=== PATIENT | female | born 1995 | race Caucasian/White ===

== ENCOUNTER 2017-06-20 09:51 | Inpatient (IN) | payer OTHER ==
[~2017-06-20] VITALS: Ht 157.5 cm; Wt 66.0 kg
[2017-06-20] MEDS ORDERED: PANTOprazole SOD 40 MG TAB PO STA (10:04)
[2017-06-20] MEDS ORDERED: ALUMINUM/MAGNESIUM SUSP 30 ML UDC PO STA (10:04)
[2017-06-20] MEDS ORDERED: ONDANSETRON INJ 2 MG/ML 2 ML VIAL IV STA (10:04)
[2017-06-20] MEDS ORDERED: ACETAMINOPHEN 500 MG TAB PO STA (10:04)
[2017-06-20 10:26] LABS: BASO % 0.1 %; BASO ABS # 0.01 K/uL (0-0.2); EOS % 1.1 %; EOS ABS # 0.12 K/uL (0-0.5); HEMATOCRIT 41.5 % (37-47); HEMOGLOBIN 14.2 g/dL (12.0-16.0); IG# 0.02 K/uL (0.00-0.02); LYMPH ABS # 2.16 K/uL (1.2-3.4); MEAN CORPUSCULAR HEMOGLOBIN 28.1 pg (25-34); MEAN CORPUSCULAR HGB CONC 34.2 g/dl (32-36); MEAN PLATELET VOLUME 9.6 fL (7.4-10.4); MONO % 7.8 %; MONO ABS # 0.84 K/uL (0.11-0.59); NEUT % 70.8 %; NEUT ABS # 7.63 K/uL (1.4-6.5); PLATELET COUNT 183 K/uL (130-400); RED CELL DISTRIBUTION WIDTH CV 14.4 % (11.5-14.5); RED CELL DISTRIBUTION WIDTH SD 42.8 fL (36.4-46.3); WHITE BLOOD COUNT 10.78 K/uL (4.8-10.8)
[2017-06-20 10:35] LABS: PTT PATIENT 28.2 SECONDS (21.0-31.0)
--- NOTE | 2017-06-20 10:40 | EMERGENCY ROOM VISIT NOTE ---
History Report prepared by Hema: Brandie Sharma Under the Supervision of: Dr. Jd Sandra D.O. First contact with patient: 09:58 Chief Complaint: SHORTNESS OF BREATH Stated Complaint: PRESSURE ON THROAT/CHEST, TROUBLE BREATHING History of Present Illness The patient is a 22 year old female who presents to the Emergency Room with complaints of constant shortness of breath beginning yesterday morning. She states that she woke up feeling short of breath. She reports a feeling of tightness in her chest and chest pain that occurs with breathing. The patient also notes some nausea and upper abdominal discomfort. She has never experienced symptoms like this before. She did not take any medications for her symptoms. The patient denies vomiting and pain or swelling in her legs. She takes an OCP. Source of History: patient Onset: yesterday morning Position: chest Quality: other (shortness of breath) Timing: constant Modifying Factors (Worsening): breathing Associated Symptoms: + chest pain, + nausea, + abdominal pain, No vomiting Review of Systems See HPI for pertinent positives & negatives. A total of 10 systems reviewed and were otherwise negative. Past Medical & Surgical Medical Problems: (1) Pulmonary embolism Surgical Problems: (1) History of wisdom tooth extraction Family History Cancer Diabetes mellitus Gallbladder disease Heart disease Hypertension Kidney disease Kidney stones Lung disease Seizures Social History Smoking Status: Never Smoker Smokeless Tobacco Use: No Alcohol Use: none Drug Use: none Marital Status: single Occupation Status: student Current/Historical Medications Scheduled Ethinyl Estradiol/Norethindr (), 1 TAB PO DAILY Allergies Coded Allergies: No Known Allergies (Unverified , 06/20/17) Physical Exam Vital Signs Date Time Temp Pulse Resp B/P (MAP) Pulse Ox O2 Delivery O2 Flow Rate FiO2 06/20/17 12:19 100 Room Air 06/20/17 11:37 100 Room Air 06/20/17 11:19 95 18 117/81 100 Room Air 06/20/17 10:20 88 06/20/17 10:13 137/90 06/20/17 10:00 Room Air 06/20/17 09:53 37.1 98 20 120/84 100 Room Air Physical Exam GENERAL: Patient is awake, alert, and in no acute distress. Patient is resting comfortably and showing no signs of anxiety EYES: The conjunctivae are clear. The pupils are round and reactive. EARS, NOSE, MOUTH AND THROAT: The nose is without any evidence of any deformity. Mucous membranes are moist tongue is midline NECK: The neck is nontender and supple. RESPIRATORY: Normal respiratory effort is noted there is no evidence of wheezing rhonchi or rales CARDIOVASCULAR: Regular rate and rhythm noted there no murmurs rubs or gallops normal S1 normal S2 GASTROINTESTINAL: The abdomen is soft. Bowel sounds are present in all quadrants. There was epigastric tenderness to palpation which was mild, no guarding or rigidity. MUSCULOSKELETAL/EXTREMITIES: There is no evidence of gross deformity full range of motion is noted in the hips and shoulders SKIN: There is no obvious evidence of any rash. There are no petechiae, pallor or cyanosis noted. NEUROLOGIC: Patient is awake alert and oriented x3 strength is symmetric patellar reflexes are 2+ bilaterally Medical Decision & Procedures ER Provider Diagnostic Interpretation: Radiology results as stated below per my review and radiologist interpretation: ABDOMEN 2VIEW W/PA CHEST RTN CLINICAL HISTORY: Abdominal pain DIFFICULTY BREATHING COMPARISON STUDY: No previous studies for comparison. FINDINGS: The erect chest reveals no evidence of free air. There is no evidence of focal pulmonary consolidation.] Erect and supine views of the abdomen reveal no abnormally dilated loops of large or small bowel. There are no transition zone to indicate bowel obstruction. There are few scattered nonspecific air-fluid levels. IMPRESSION: No evidence of bowel obstruction. No evidence of free air. Electronically signed by: Steve Osman M.D. 06/20/2017 10:52 AM Dictated Date/Time: 06/20/2017 10:[address] ANGIOGRAM OF THE CHEST CLINICAL HISTORY: Atypical chest pain and difficulty breathing COMPARISON STUDY: Chest x-ray dated 06/20/2017 TECHNIQUE: Following the IV administration of 79 mL of Optiray-320, CT angiogram of the thorax was performed from the thoracic inlet to the lung bases utilizing the pulmonary embolus protocol. Images are reviewed in the axial, sagittal, and coronal planes. IV contrast was administered without complication. MIP imaging was performed. A dose lowering technique was utilized adhering to the principles of ALARA. CT DOSE: 219.96 mGy.cm FINDINGS: No pathologically enlarged axillary mediastinal or hilar lymph nodes were visualized. There was no evidence of thoracic aortic dilatation. There are extensive left lower lobe pulmonary artery filling defects, indicative of acute pulmonary embolism. There is also a filling defect at the origin of the left upper lobe pulmonary artery No pleural effusions are visualized. There was no evidence of focal pulmonary consolidation. IMPRESSION: Acute pulmonary embolism. Electronically signed by: Steve Osman M.D. 06/20/2017 11:20 AM Dictated Date/Time: 06/20/2017 11:16 AM Laboratory Results 06/20/17 10:00 Red Blood Count 5.06, Mean Corpuscular Volume 82.0, Mean Corpuscular Hemoglobin 28.1, Mean Corpuscular Hemoglobin Concent 34.2, Mean Platelet Volume 9.6, Neutrophils (%) (Auto) 70.8, Lymphocytes (%) (Auto) 20.0, Monocytes (%) (Auto) 7.8, Eosinophils (%) (Auto) 1.1, Basophils (%) (Auto) 0.1, Neutrophils # (Auto) 7.63, Lymphocytes # (Auto) 2.16, Monocytes # (Auto) 0.84, Eosinophils # (Auto) 0.12, Basophils # (Auto) 0.01 06/20/17 10:00 Test 06/20/17 10:00 06/20/17 12:17 White Blood Count 10.78 K/uL (4.8-10.8) Red Blood Count 5.06 M/uL (4.2-5.4) Hemoglobin 14.2 g/dL (12.0-16.0) Hematocrit 41.5 % (37-47) Mean Corpuscular Volume 82.0 fL (80-100) Mean Corpuscular Hemoglobin 28.1 pg (25-34) Mean Corpuscular Hemoglobin Concent 34.2 g/dl (32-36) Platelet Count 183 K/uL (130-400) Mean Platelet Volume 9.6 fL (7.4-10.4) Neutrophils (%) (Auto) 70.8 % Lymphocytes (%) (Auto) 20.0 % Monocytes (%) (Auto) 7.8 % Eosinophils (%) (Auto) 1.1 % Basophils (%) (Auto) 0.1 % Neutrophils # (Auto) 7.63 K/uL (1.4-6.5) Lymphocytes # (Auto) 2.16 K/uL (1.2-3.4) Monocytes # (Auto) 0.84 K/uL (0.11-0.59) Eosinophils # (Auto) 0.12 K/uL (0-0.5) Basophils # (Auto) 0.01 K/uL (0-0.2) RDW Standard Deviation 42.8 fL (36.4-46.3) RDW Coefficient of Variation 14.4 % (11.5-14.5) Immature Granulocyte % (Auto) 0.2 % Immature Granulocyte # (Auto) 0.02 K/uL (0.00-0.02) Prothrombin Time 10.7 SECONDS (9.0-12.0) Prothromb Time International Ratio 1.0 (0.9-1.1) Activated Partial Thromboplast Time 28.2 SECONDS (21.0-31.0) Partial Thromboplastin Ratio 1.1 Urine Color DK YELLOW Urine Appearance CLEAR (CLEAR) Urine pH 5.5 (4.5-7.5) Urine Specific [place] 1.023 (1.000-1.030) Urine Protein NEG (NEG) Urine Glucose (UA) NEG (NEG) Urine Ketones NEG (NEG) Urine Occult Blood NEG (NEG) Urine Nitrite NEG (NEG) Urine Bilirubin NEG (NEG) Urine Urobilinogen NEG (NEG) Urine Leukocyte Esterase NEG (NEG) Anion Gap 9.0 mmol/L (3-11) Est Creatinine Clear Calc Drug Dose 95.3 ml/min Estimated GFR () 110.4 Estimated GFR (Non- 95.2 BUN/Creatinine Ratio 7.6 (10-20) Calcium Level 9.1 mg/dl (8.5-10.1) Total Bilirubin 0.6 mg/dl (0.2-1) Direct Bilirubin 0.1 mg/dl (0-0.2) Aspartate Amino Transf (AST/SGOT) 14 U/L (15-37) Alanine Aminotransferase (ALT/SGPT) 17 U/L (12-78) Alkaline Phosphatase 57 U/L (45-117) Troponin I < 0.015 ng/ml (0-0.045) Total Protein 8.5 gm/dl (6.4-8.2) Albumin 3.8 gm/dl (3.4-5.0) Lipase 188 U/L (73-393) Human Chorionic Gonadotropin, Qual NEG (NEG) Laboratory results per my review. Medications Administered Medications (Trade) Dose Ordered Sig/Rubia Route Start Time Stop Time Status Last Admin Dose Admin Acetaminophen (Tylenol Tab) 1,000 mg NOW STAT PO 06/20/17 10:04 06/20/17 10:06 DC 06/20/17 10:30 1,000 MG Al Hydroxide/Mg Hydroxide (Maalox Susp) 30 ml NOW STAT PO 06/20/17 10:04 06/20/17 10:06 DC 06/20/17 10:30 30 ML Ondansetron HCl (Zofran Inj) 4 mg NOW STAT IV 06/20/17 10:04 06/20/17 10:06 DC 06/20/17 10:30 4 MG Pantoprazole Sodium (Protonix Tab) 40 mg NOW STAT PO 06/20/17 10:04 06/20/17 10:06 DC 06/20/17 10:29 40 MG Enoxaparin Sodium (Lovenox Inj) 75 mg NOW ONCE SQ 06/20/17 11:45 06/20/17 11:46 DC 06/20/17 12:09 75 MG ECG Per My Interpretation Indication: SOB/dyspnea Rate (beats per minute): 79 Rhythm: normal sinus Findings: T-wave inversion (Inferior), no ectopy Comparison ECG Date: no prior available ED Course 0958: The patient was evaluated in room A12B. A complete history and physical examination were performed. 1004: Protonix tab 40 mg PO, Zofran 4 mg IV, Maalox Susp 30 ml PO, Tylenol tab 1000 mg PO 1129: I reassessed the patient at this time. She is feeling better and resting comfortably. I discussed the results and treatment plan with the patient. I answered all pertaining questions that she had. She expressed understanding and verbalized agreement. 1141: I spoke with Dr. Box. We discussed the patient's case. [facility] 1145: Lovenox 75 mg SQ Medical Decision Differential diagnosis: Etiologies such as infections, reactive airway disease, pneumonia, pneumothorax , COPD, CHF, cardiac ischemia, pulmonary embolism, musculoskeletal, gastrointestinal, as well as others were entertained. Nursing notes reviewed. Additional history is obtained from the patient's family. The patient is a 22-year-old female who presented to the emergency department with pleuritic chest pain. The patient does have a history of taking oral control pills. She was not tachycardic initially. She does have a family history of factor V Leiden although she herself states that she was tested negative for this disease process. The patient was treated with Tylenol and medications for suspected GI cause of her symptoms but she had a d-dimer which was elevated. This led to a CT the chest which was positive for left- sided pulmonary embolism. The patient was started on Lovenox. I discussed the patient's laboratory and radiographic studies with her. I discussed her case with the on-call [facility] hospitalist group. They have agreed to evaluate the patient in the emergency department for further management and disposition. Medication Reconcilliation Current Medication List: was personally reviewed by me Blood Pressure Screening Patient's blood pressure: Normal blood pressure Consults Time Called: 1130 Consulting Physician: Dr. Box Returned Call: [address] Box. We discussed the patient's case. [facility]. Impression Primary Impression: Pulmonary embolism Scribe Attestation The scribe's documentation has been prepared under my direction and personally reviewed by me in its entirety. I confirm that the note above accurately reflects all work, treatment, procedures, and medical decision making performed by me. Departure Information Dispostion Being Evaluated By Hospitalist Referrals Katherin Pennington M.D. (MEDICAL) (PCP) Patient Instructions My [facility]
[2017-06-20 10:47] LABS: ALBUMIN 3.8 gm/dl (3.4-5.0); ALT/SGPT 17 U/L (12-78); AST/SGOT 14 U/L (15-37); BLOOD UREA NITROGEN 7 mg/dl (7-18); CALCIUM 9.1 mg/dl (8.5-10.1); CARBON DIOXIDE 23 mmol/L (21-32); CREATININE 0.87 mg/dl (0.60-1.20); GLUCOSE 81 mg/dl (70-99); LIPASE 188 U/L (73-393); POTASSIUM 3.7 mmol/L (3.5-5.1); SODIUM 137 mmol/L (136-145)
[2017-06-20 10:53] LABS: ALKALINE PHOSPHATASE 57 U/L (45-117); TOTAL PROTEIN 8.5 gm/dl (6.4-8.2)
--- NOTE | 2017-06-20 10:53 | DIAGNOSTIC IMAGING REPORT ---
ABDOMEN 2VIEW W/PA CHEST RTN CLINICAL HISTORY: Abdominal pain DIFFICULTY BREATHING COMPARISON STUDY: No previous studies for comparison. FINDINGS: The erect chest reveals no evidence of free air. There is no evidence of focal pulmonary consolidation.] Erect and supine views of the abdomen reveal no abnormally dilated loops of large or small bowel. There are no transition zone to indicate bowel obstruction. There are few scattered nonspecific air-fluid levels. IMPRESSION: No evidence of bowel obstruction. No evidence of free air. Electronically signed by: Steve Osman M.D. 06/20/2017 10:52 AM Dictated Date/Time: 06/20/2017 10:51 AM
[2017-06-20] MEDS ORDERED: JNL12021 PO (10:58)
[2017-06-20] MEDS ORDERED: JNLF153028 PO (11:00)
[2017-06-20] MEDS ORDERED: OPTIRAY 320 IV PRN (11:15)
--- NOTE | 2017-06-20 11:21 | DIAGNOSTIC IMAGING REPORT ---
CT ANGIOGRAM OF THE CHEST CLINICAL HISTORY: Atypical chest pain and difficulty breathing COMPARISON STUDY: Chest x-ray dated 06/20/2017 TECHNIQUE: Following the IV administration of 79 mL of Optiray-320, CT angiogram of the thorax was performed from the thoracic inlet to the lung bases utilizing the pulmonary embolus protocol. Images are reviewed in the axial, sagittal, and coronal planes. IV contrast was administered without complication. MIP imaging was performed. A dose lowering technique was utilized adhering to the principles of ALARA. CT DOSE: 219.96 mGy.cm FINDINGS: No pathologically enlarged axillary mediastinal or hilar lymph nodes were visualized. There was no evidence of thoracic aortic dilatation. There are extensive left lower lobe pulmonary artery filling defects, indicative of acute pulmonary embolism. There is also a filling defect at the origin of the left upper lobe pulmonary artery No pleural effusions are visualized. There was no evidence of focal pulmonary consolidation. IMPRESSION: Acute pulmonary embolism. Electronically signed by: Steve Osman M.D. 06/20/2017 11:20 AM Dictated Date/Time: 06/20/2017 11:16 AM
[2017-06-20] MEDS ORDERED: ENOXAPARIN 80 MG/0.8 ML SYR SQ ONE (11:45)
[2017-06-20] MEDS ORDERED: ONDANSETRON INJ 2 MG/ML 2 ML VIAL IV PRN (12:15)
[2017-06-20] MEDS ORDERED: ACETAMINOPHEN 325 MG TAB PO PRN (12:15)
--- NOTE | 2017-06-20 12:17 | History and Physical ---
History & Physical Date & Time of Service: Jun 20, 2017 at 12:16 Chief Complaint: Pressure On Throat/Chest, Trouble Breathing Primary Care Physician: Katherin Pennington M.D. (MEDICAL) History of Present Illness Source: patient, family Patient is a 22 yr female with no significant PMH presents with history of chest tightness and throat pain which patient noticed after waking up from sleep yesterday. She grades the pain to be epigastric in location, dull pain, 2/ 10 intensity, non radiating, no aggravating/relieving factors. Reports associated dyspnea on exertion but denies any shortness of breath at rest. Patient is on OCPs for contraception and family history of Factor V Leiden mutation. Denies any history of palpitations, orthopnea, PND, dizziness, pedal edema, diaphoresis, calf pain, cough, hemoptysis, fever, chills, headache, weakness, nausea, vomiting, diarrhea, dysuria. CT scan showed findings suggestive of acute Pulmonary Embolism. Past Medical/Surgical History Medical Problems: (1) Pulmonary embolism Surgical Problems: (1) History of wisdom tooth extraction Family History Cancer Diabetes mellitus Gallbladder disease Heart disease Hypertension Kidney disease Kidney stones Lung disease Seizures Mother: Factor V mutation, Bladder cancer Social History Smoking Status: Never Smoker Smokeless Tobacco Use: No Alcohol Use: none Drug Use: none Marital Status: single Housing status: lives with family Occupational Status: student Allergies Coded Allergies: No Known Allergies (Unverified , 06/20/17) Home Medications Scheduled Ethinyl Estradiol/Norethindr (), 1 TAB PO DAILY Review of Systems See HPI for pertinent positives & negatives. A total of 10 systems reviewed and were otherwise negative. Physical Exam Vital Signs Date Time Temp Pulse Resp B/P (MAP) Pulse Ox O2 Delivery O2 Flow Rate FiO2 06/20/17 11:37 100 Room Air 06/20/17 11:19 95 18 117/81 100 Room Air 06/20/17 10:20 88 06/20/17 10:13 137/90 06/20/17 10:00 Room Air 06/20/17 09:53 37.1 98 20 120/84 100 Room Air General Appearance: WD/WN, no apparent distress Head: normocephalic, atraumatic Eyes: normal inspection, PERRL, EOMI, sclerae normal ENT: normal ENT inspection, hearing grossly normal Neck: supple, trachea midline Respiratory/Chest: chest non-tender, lungs clear, normal breath sounds, no respiratory distress, no accessory muscle use Cardiovascular: regular rate, rhythm, no edema, no murmur, + tachycardia Abdomen/GI: normal bowel sounds, non tender, soft Back: normal inspection Extremities/Musculoskelatal: normal inspection, no pedal edema Neurologic/Psych: production control clerk II-XII nml as tested, no motor/sensory deficits, alert, normal mood/affect, oriented x 3 Skin: normal color, warm/dry Diagnostics Laboratory Results Results Past 24 Hours Test 06/20/17 10:00 Range/Units White Blood Count 10.78 4.8-10.8 K/uL Red Blood Count 5.06 4.2-5.4 M/uL Hemoglobin 14.2 12.0-16.0 g/dL Hematocrit 41.5 37-47 % Mean Corpuscular Volume 82.0 80-100 fL Mean Corpuscular Hemoglobin 28.1 25-34 pg Mean Corpuscular Hemoglobin Concent 34.2 32-36 g/dl Platelet Count 183 130-400 K/uL Mean Platelet Volume 9.6 7.4-10.4 fL Neutrophils (%) (Auto) 70.8 % Lymphocytes (%) (Auto) 20.0 % Monocytes (%) (Auto) 7.8 % Eosinophils (%) (Auto) 1.1 % Basophils (%) (Auto) 0.1 % Neutrophils # (Auto) 7.63 1.4-6.5 K/uL Lymphocytes # (Auto) 2.16 1.2-3.4 K/uL Monocytes # (Auto) 0.84 0.11-0.59 K/uL Eosinophils # (Auto) 0.12 0-0.5 K/uL Basophils # (Auto) 0.01 0-0.2 K/uL RDW Standard Deviation 42.8 36.4-46.3 fL RDW Coefficient of Variation 14.4 11.5-14.5 % Immature Granulocyte % (Auto) 0.2 % Immature Granulocyte # (Auto) 0.02 0.00-0.02 K/uL Prothrombin Time 10.7 9.0-12.0 SECONDS Prothromb Time International Ratio 1.0 0.9-1.1 Activated Partial Thromboplast Time 28.2 21.0-31.0 SECONDS Partial Thromboplastin Ratio 1.1 Urine Color DK YELLOW Urine Appearance CLEAR CLEAR Urine pH 5.5 4.5-7.5 Urine Specific [place] 1.023 1.000-1.030 Urine Protein NEG NEG Urine Glucose (UA) NEG NEG Urine Ketones NEG NEG Urine Occult Blood NEG NEG Urine Nitrite NEG NEG Urine Bilirubin NEG NEG Urine Urobilinogen NEG NEG Urine Leukocyte Esterase NEG NEG Sodium Level 137 136-145 mmol/L Potassium Level 3.7 3.5-5.1 mmol/L Chloride Level 105 98-107 mmol/L Carbon Dioxide Level 23 21-32 mmol/L Anion Gap 9.0 3-11 mmol/L Blood Urea Nitrogen 7 7-18 mg/dl Creatinine 0.87 0.60-1.20 mg/dl Est Creatinine Clear Calc Drug Dose 95.3 ml/min Estimated GFR () 110.4 Estimated GFR (Non- 95.2 BUN/Creatinine Ratio 7.6 10-20 Random Glucose 81 70-99 mg/dl Calcium Level 9.1 8.5-10.1 mg/dl Total Bilirubin 0.6 0.2-1 mg/dl Direct Bilirubin 0.1 0-0.2 mg/dl Aspartate Amino Transf (AST/SGOT) 14 15-37 U/L Alanine Aminotransferase (ALT/SGPT) 17 12-78 U/L Alkaline Phosphatase 57 45-117 U/L Troponin I < 0.015 0-0.045 ng/ml Total Protein 8.5 6.4-8.2 gm/dl Albumin 3.8 3.4-5.0 gm/dl Lipase 188 73-393 U/L Human Chorionic Gonadotropin, Qual NEG NEG Diagnostic Radiology CTA: : Acute pulmonary embolism. EKG EKG: NSR, sinus arrhythmia Impression Assessment and Plan Acute Pulmonary Embolism Likely secondary to OCPs Denies recent long Travel, prolonged Hospitalization Family H/O Factor V, Cancer CTA showed:Acute Pulmonary Embolism Saturating well on Room air Start on IV Lovenox, coumadin monitor INR Monitor in Tele for hemodynamic changes Oxygen PRN hypercoagulable work up Consider starting on newer anticoagulants as per Patient's preference Check ECHO Trend cardiac enzymes EKG: No signs of acute Ischemia DVT Px: On Lovenox, Coumadin Disposition; Expect to discharge home when stable Resuscitation Status VTE Prophylaxis Will order VTE Prophylaxis: Yes
[2017-06-20 12:19] VITALS: O2SAT 100; Ht 157.5 cm; Wt 66.0 kg
[2017-06-20 13:29] VITALS: BP 121/79; PULSE 107; TEMP 37.3; O2SAT 99
[2017-06-20] MEDS ORDERED: SODIUM CHLORIDE 0.9% 500ML 500 ML IV SCH (14:30)
[2017-06-20] MEDS ORDERED: WARFARIN SOD 5 MG TAB PO SCH (16:00)
[2017-06-20 16:12] VITALS: BP 120/78; PULSE 66; TEMP 36.8; O2SAT 100
--- NOTE | 2017-06-20 16:31 | ECHOCARDIOGRAM REPORT ---
*NOTICE TO RECEIVING CONSTITUTION PARTY AGENCY This information is strictly Confidential and protected under [place] law. [place] law prohibits you from making any further disclosure of this information unless further disclosure is expressly permitted by the written consent of the person to whom it pertains or is authorized by law. A general authorization for the release of medical or other information is not sufficient for this purpose. Hospital accepts no responsibility if the information is made available to any other person, INCLUDING THE PATIENT. Interpretation Summary * Name: JOSE MARIE Study Date: 06/20/2017 12:46 PM BP: 117/81 mmHg * Patient Location: [facility] HR: 95 * : 1995 (M/d/yyyy) Gender: Female Height: 62 in * Age: 22 yrs Ethnicity: CA Weight: 159 lb * Ordering Physician: Vernon Box * Performed By: Zenia Serrano RDCS * * Reason For Study: CHEST PAIN * BSA: 1.7 m2 * -- Conclusions -- * Normal LV chamber size and wall thickness. * Normal LV systolic function, EF 60-65%. * No segmental left ventricular wall motion abnormalities are noted. * Normal diastolic function. * No significant valvular pathology. Procedure Details * A complete two-dimensional transthoracic echocardiogram was performed (2D, M-mode, Doppler and color flow Doppler). Left Ventricle * The left ventricle is normal in size. * There is normal left ventricular wall thickness. * Ejection Fraction = 60-65%. * Left ventricular systolic function is normal. * No segmental left ventricular wall motion abnormalities are noted. * The left ventricular wall motion is normal. Right Ventricle * The right ventricular cavity size is normal (basal dimension <4.2 cm in right ventricular apical 4-chamber view). * The right ventricular systolic function is normal as assessed by tricuspid annular plane systolic excursion (TAPSE) (normal >1.5 cm). Atria * The left atrial size is normal. * Right atrial size is normal. * No ASD detected; PFO is not assessed. Mitral Valve * The mitral valve is normal in structure and function. Tricuspid Valve * The tricuspid valve is normal in structure and function. Aortic Valve * The aortic valve is not well visualized. * No hemodynamically significant valvular aortic stenosis. * There is no significant aortic regurgitation. Pulmonic Valve * The pulmonary valve is not well seen, but the Doppler examination is normal without significant regurgitation or stenosis. Great Vessels * The aortic root is normal size. Pericardium/Pleural * There is no pericardial effusion. Left Ventricular Diastolic Function * Pulse wave TDI of the anterior and posterior mitral annulas demonstrates normal LV relaxation MMode 2D Measurements and Calculations IVSd 0.97 cm IVSs 1.2 cm LVIDd 4.2 cm LVIDs 2.7 cm LVPWd 0.79 cm LVPWs 1.4 cm IVS/LVPW 1.2 FS 34.4 % EDV(Teich) 77.4 ml ESV(Teich) 27.9 ml EF(Teich) 63.9 % EDV(cubed) 72.7 ml ESV(cubed) 20.5 ml EF(cubed) 71.8 % % IVS thick 18.3 % % LVPW thick 74.2 % LV mass(C)d 114.2 grams LV mass(C)dI 65.8 grams/m\S\2 LV mass(C)s 104.9 grams LV mass(C)sI 60.5 grams/m\S\2 SV(Teich) 49.4 ml SI(Teich) 28.5 ml/m\S\2 SV(cubed) 52.2 ml SI(cubed) 30.1 ml/m\S\2 ACS 1.2 cm LA dimension 3.2 cm asc Aorta Diam 2.7 cm LVOT diam 1.9 cm LVOT area 2.8 cm\S\2 LVAd ap4 21.6 cm\S\2 LVLd ap4 8.2 cm EDV(MOD-sp4) 47.6 ml EDV(sp4-el) 48.6 ml LVAs ap4 11.6 cm\S\2 LVLs ap4 6.5 cm ESV(MOD-sp4) 17.0 ml ESV(sp4-el) 17.5 ml EF(MOD-sp4) 64.2 % EF(sp4-el) 64.0 % LVAd ap2 25.5 cm\S\2 LVLd ap2 8.7 cm EDV(MOD-sp2) 61.4 ml EDV(sp2-el) 63.2 ml LVAs ap2 13.6 cm\S\2 LVLs ap2 7.2 cm ESV(MOD-sp2) 22.6 ml ESV(sp2-el) 21.8 ml EF(MOD-sp2) 63.1 % EF(sp2-el) 65.5 % LVLd %diff 6.1 % EDV(MOD-bp) 55.7 ml LVLs %diff 9.9 % ESV(MOD-bp) 20.5 ml EF(MOD-bp) 63.2 % SV(MOD-sp4) 30.6 ml SI(MOD-sp4) 17.6 ml/m\S\2 SV(MOD-sp2) 38.8 ml SI(MOD-sp2) 22.4 ml/m\S\2 SV(MOD-bp) 35.2 ml SI(MOD-bp) 20.3 ml/m\S\2 SV(sp4-el) 31.1 ml SI(sp4-el) 17.9 ml/m\S\2 SV(sp2-el) 41.4 ml SI(sp2-el) 23.9 ml/m\S\2 Doppler Measurements and Calculations MV E max milena 68.5 cm/sec MV A max milena 52.4 cm/sec MV E/A 1.3 MV dec time 0.20 sec Ao V2 max 113.9 cm/sec Ao max PG 5.2 mmHg Ao max PG (full) 1.9 mmHg BENOIT(V,A) 2.2 cm\S\2 BENOIT(V,D) 2.2 cm\S\2 LV V1 max PG 3.3 mmHg LV V1 max 90.3 cm/sec PA V2 max 71.2 cm/sec PA max PG 2.0 mmHg
--- NOTE | 2017-06-20 18:58 | Pulmonary Consultation ---
History General Date of Service: Jun 20, 2017. Stated Complaint: Pulmonary Embolism HPI Dear Dr. Box: Thank you for your kind referral of Ms. Diamond to pulmonary service. This is 22 -year-old female without past medical history presented to the hospital with sudden onset of shortness of breath accompanied with chest pain mainly in the upper mediastinal area. The patient has been having the symptoms only for 24 hours. She denies any pain in her legs, denies any pain in her back either. No recent history of UTI. Apparently, the patient has been changed her control pills to a newer one (Junel) which is Estradiol based medication. The patient has been taking it for the past month only. Her mother also had a history of factor V Leiden deficiency and she has been maintained on Coumadin for life. The patient denies any recent sedentary life, she works in an office- based, and she is a student. She denies any recent travel, no recent injury or surgery. Currently the patient is asymptomatic, she was presented to the hospital underwent CT angiogram of the chest which showed inferior branch of the pulmonary artery on the left with thrombosis. Filling defect was noted no evidence of pleural effusion or pulmonary infarct. The patient underwent echocardiogram and showed TAPSE greater than 1.5. Troponin was negative and d- dimer was more than 450. The patient was started empirically on heparin drip and admitted to the hospital so we were asked to evaluate her clinically. The patient does not have any history of thromboembolic event in the past. No history of recent . Historian: patient, family, other (Medical records) Onset: just prior to arrival Complaint Status: persistent Review of Systems Constitutional: denies: no symptoms, as stated in HPI, chills, diaphoresis, fever, malaise, weakness, weight gain, weight loss, other Eyes: denies: no symptoms, as stated in HPI, eye pain, tearing, itching, redness, discharge, double vision, visual changes, blurred vision, photophobia, other ENT: denies: no symptoms, as stated in HPI, ear pain, ear discharge, loss of hearing, tinnitus, nasal pain, nasal congestion, rhinorrhea, epistaxis, sore throat, stridor, throat swelling, mouth pain, mouth swelling, dental pain, gum swelling, other Cardiovascular: reports: chest tightness Respiratory: reports: shortness of breath Gastrointestinal: reports: no symptoms Musculoskeletal: reports: no symptoms Integumentary: reports: no symptoms Neurologic: reports: no symptoms Psychiatric: reports: no symptoms Endocrine: no symptoms Allergic / Immunologic: no symptoms Past Medical History Past Medical History: Not significant Family History Cancer Diabetes mellitus Gallbladder disease Heart disease Hypertension Kidney disease Kidney stones Lung disease Seizures Social History Hx Tobacco Use In Past Year?: No Smoking Status: Never Smoker Marital status: single Housing status: lives with family Occupational Status: student History of MDRO History of MDRO: No Allergies Coded Allergies: No Known Allergies (Unverified , 06/20/17) Current Medications Reported Home Medications Medications Dose Route/Sig Max Daily Dose Days Date Category (Ethinyl Estradiol/Norethindrone) 1 Tab Tab 1 Tab PO DAILY 28 06/20/17 Reported Physical Physical Exam Vital Signs: Date Time Temp Pulse Resp B/P (MAP) Pulse Ox O2 Delivery O2 Flow Rate FiO2 06/20/17 16:12 36.8 66 18 120/78 (92) 100 Room Air 06/20/17 16:00 Room Air 06/20/17 13:29 37.3 107 18 121/79 (93) 99 Room Air 06/20/17 12:52 97 18 119/78 98 Room Air 06/20/17 12:19 100 Room Air 06/20/17 11:37 100 Room Air 06/20/17 11:19 95 18 117/81 100 Room Air 06/20/17 10:20 88 06/20/17 10:13 137/90 06/20/17 10:00 Room Air 06/20/17 09:53 37.1 98 20 120/84 100 Room Air General Appearance: WELL-APPEARING, NO APPARENT DISTRESS Eyes: PERRLA, EOMI ENT: NORMAL EAR EXAM, NORMAL MOUTH EXAM Neck: NO TENDERNESS Respiratory: BREATH SOUNDS NORMAL Cardiovasular: REGULAR RATE/RHYTHM, NORMAL S1S2, NO M/G/R, NO MURMUR Abdomen: NON TENDER, NO MASSES, NO GUARDING Lower Extremities: NO EDEMA, NO DEFORMITY Neuro: ALERT, ORIENTED x 3, NORMAL MOTOR EXAM Psychiatric: NORMAL AFFECT Diagnostics Labs Results Past 24 Hours Test 06/20/17 10:00 06/20/17 10:19 06/20/17 15:52 Range/Units White Blood Count 10.78 4.8-10.8 K/uL Red Blood Count 5.06 4.2-5.4 M/uL Hemoglobin 14.2 12.0-16.0 g/dL Hematocrit 41.5 37-47 % Mean Corpuscular Volume 82.0 80-100 fL Mean Corpuscular Hemoglobin 28.1 25-34 pg Mean Corpuscular Hemoglobin Concent 34.2 32-36 g/dl Platelet Count 183 130-400 K/uL Mean Platelet Volume 9.6 7.4-10.4 fL Neutrophils (%) (Auto) 70.8 % Lymphocytes (%) (Auto) 20.0 % Monocytes (%) (Auto) 7.8 % Eosinophils (%) (Auto) 1.1 % Basophils (%) (Auto) 0.1 % Neutrophils # (Auto) 7.63 1.4-6.5 K/uL Lymphocytes # (Auto) 2.16 1.2-3.4 K/uL Monocytes # (Auto) 0.84 0.11-0.59 K/uL Eosinophils # (Auto) 0.12 0-0.5 K/uL Basophils # (Auto) 0.01 0-0.2 K/uL RDW Standard Deviation 42.8 36.4-46.3 fL RDW Coefficient of Variation 14.4 11.5-14.5 % Immature Granulocyte % (Auto) 0.2 % Immature Granulocyte # (Auto) 0.02 0.00-0.02 K/uL Prothrombin Time 10.7 9.0-12.0 SECONDS Prothromb Time International Ratio 1.0 0.9-1.1 Activated Partial Thromboplast Time 28.2 21.0-31.0 SECONDS Partial Thromboplastin Ratio 1.1 Urine Color DK YELLOW Urine Appearance CLEAR CLEAR Urine pH 5.5 4.5-7.5 Urine Specific [place] 1.023 1.000-1.030 Urine Protein NEG NEG Urine Glucose (UA) NEG NEG Urine Ketones NEG NEG Urine Occult Blood NEG NEG Urine Nitrite NEG NEG Urine Bilirubin NEG NEG Urine Urobilinogen NEG NEG Urine Leukocyte Esterase NEG NEG Sodium Level 137 136-145 mmol/L Potassium Level 3.7 3.5-5.1 mmol/L Chloride Level 105 98-107 mmol/L Carbon Dioxide Level 23 21-32 mmol/L Anion Gap 9.0 3-11 mmol/L Blood Urea Nitrogen 7 7-18 mg/dl Creatinine 0.87 0.60-1.20 mg/dl Est Creatinine Clear Calc Drug Dose 95.3 ml/min Estimated GFR () 110.4 Estimated GFR (Non- 95.2 BUN/Creatinine Ratio 7.6 10-20 Random Glucose 81 70-99 mg/dl Calcium Level 9.1 8.5-10.1 mg/dl Total Bilirubin 0.6 0.2-1 mg/dl Direct Bilirubin 0.1 0-0.2 mg/dl Aspartate Amino Transf (AST/SGOT) 14 15-37 U/L Alanine Aminotransferase (ALT/SGPT) 17 12-78 U/L Alkaline Phosphatase 57 45-117 U/L Troponin I < 0.015 < 0.015 0-0.045 ng/ml Total Protein 8.5 6.4-8.2 gm/dl Albumin 3.8 3.4-5.0 gm/dl Lipase 188 73-393 U/L Human Chorionic Gonadotropin, Qual NEG NEG Bedside D-Dimer > 450 0-450 ng/mlFEU Diagnostic Radiology Chest CT was reviewed personally which showed PE in the distribution of the inferior pulmonary artery. RV to LV ratio is 0.87. Troponin is negative. And her d-dimer is 450. Impression Assessment and Plan 1. Acute venous thromboembolic event. Left inferior pulmonary artery. No evidence of RV strain pattern. Normal RV/LV ratio and normal troponin. 2. Risk factor for her PE is control pills that has been changed to Junel which is Estradiol based, family history with a mother who had factor V Leiden and she has been on Coumadin. Plan: 1. Obtain hypercoagulable state workup. 2. Preferably the patient should be on NOAC then Coumadin. If she decided to conceive in the future Coumadin is absolutely contraindicated in . 3. Stop control pills. Will change to progesterone based if possible. 4. Once the patient is on NOAC may stop the heparin drip. 5. Treatment for 6 months with anticoagulation except she has genetic predisposition to thrombosis, in that case, treat her for life. Thank you for your kind referral.
[2017-06-20 19:43] VITALS: BP 117/79; PULSE 85; TEMP 36.7; O2SAT 97
[2017-06-20] MEDS: ENOXAPARIN 80 MG/0.8 ML SYR SQ SCH (23:42)
[2017-06-20 23:55] VITALS: BP 114/78; PULSE 80; TEMP 37.2; O2SAT 100
[2017-06-21] VITALS (7 sets, daily range): BP systolic 116–134; BP diastolic 74–87; PULSE 60–91; TEMP 36.7–37.5; O2SAT 98–100
[2017-06-21 06:14] LABS: HEMATOCRIT 40.1 % (37-47); HEMOGLOBIN 13.5 g/dL (12.0-16.0); MEAN CORPUSCULAR HGB CONC 33.7 g/dl (32-36); MEAN PLATELET VOLUME 9.7 fL (7.4-10.4); PLATELET COUNT 166 K/uL (130-400); RED CELL DISTRIBUTION WIDTH CV 14.3 % (11.5-14.5); WHITE BLOOD COUNT 8.05 K/uL (4.8-10.8)
[2017-06-21 06:30] LABS: INR 1.1 (0.9-1.1)
[2017-06-21 06:44] LABS: CALCIUM 8.7 mg/dl (8.5-10.1); CREATININE 0.85 mg/dl (0.60-1.20); POTASSIUM 3.9 mmol/L (3.5-5.1)
--- NOTE | 2017-06-21 10:26 | Pulmonology Progress Note ---
Pulmonary Progress Note Date of Service Jun 21, 2017. Attending Dr. Gandhi Subjective No events occurred overnight, the patient developed pleuritic chest pain on the left side which is mild, no shortness of breath or heaviness as she felt before arrival to the hospital. No hemoptysis no melena no signs of bleeding. Objective As above. Assessment & Plan 1. Acute pulmonary embolism. Left-sided. The pleuritic chest pain likely representing development of pulmonary infarct. No specific treatment for it. 2. The cause of the above is possibly control pills versus genetic predisposition given her mother with factor V Leiden deficiency. Plan: 1. I would prefer the patient to start on NOAC of your choice. Based on insurability. 2. If the patient decided to conceive she should be on Lovenox. 3. Patient can be discharged home after the above. 4. Once the patient started on oral anticoagulation, Lovenox can be stopped. 5. Tylenol for pain, the patient takes ibuprofen occasionally, no contraindication to take an NSAID, watch for signs of internal bleed, patient is aware of it. 6. Follow the hypercoagulable state workup as an outpatient. 7. If the pleuritic chest pain worsen at home she may return for a repeat chest x-ray to rule out development of pleural effusion versus full infarct. Conservative management anyway. 9. Can be discharged home from pulmonary standpoint. Thank you for your kind referral. Data Medications: Current Inpatient Medications Medications (Trade) Dose Ordered Sig/Rubia Route Start Time Stop Time Status Last Admin Dose Admin Ioversol (Optiray 320) 111 ml UD PRN IV 06/20/17 11:15 06/24/17 11:14 Acetaminophen (Tylenol Tab) 650 mg Q4H PRN PO 06/20/17 12:15 07/20/17 12:14 Ondansetron HCl (Zofran Inj) 4 mg Q6H PRN IV 06/20/17 12:15 07/20/17 12:14 Enoxaparin Sodium (Lovenox Inj) 70 mg Q12H SQ 06/21/17 00:00 07/21/17 00:00 06/20/17 23:42 70 MG Warfarin Sodium (Coumadin Tab) 5 mg DAILY@16 PO 06/20/17 16:00 07/20/17 15:59 06/20/17 15:29 5 MG Vital Signs: Date Time Temp Pulse Resp B/P (MAP) Pulse Ox O2 Delivery O2 Flow Rate FiO2 06/21/17 08:00 Room Air 06/21/17 07:26 36.8 60 18 116/74 (88) 98 Room Air 06/21/17 04:06 36.7 85 18 117/78 (91) 99 Room Air 06/21/17 04:00 100 Room Air 06/21/17 00:00 100 Room Air 06/20/17 23:55 37.2 80 16 114/78 (90) 100 Room Air 06/20/17 20:00 Room Air 06/20/17 19:43 36.7 85 18 117/79 (92) 97 Room Air 06/20/17 16:12 36.8 66 18 120/78 (92) 100 Room Air 06/20/17 16:00 Room Air 06/20/17 13:29 37.3 107 18 121/79 (93) 99 Room Air 06/20/17 12:52 97 18 119/78 98 Room Air 06/20/17 12:19 100 Room Air 06/20/17 11:37 100 Room Air 06/20/17 11:19 95 18 117/81 100 Room Air Laboratory Results: Last 24 Hours Test 06/20/17 15:52 06/21/17 05:53 Troponin I < 0.015 ng/ml White Blood Count 8.05 K/uL Red Blood Count 4.83 M/uL Hemoglobin 13.5 g/dL Hematocrit 40.1 % Mean Corpuscular Volume 83.0 fL Mean Corpuscular Hemoglobin 28.0 pg Mean Corpuscular Hemoglobin Concent 33.7 g/dl RDW Standard Deviation 43.0 fL RDW Coefficient of Variation 14.3 % Platelet Count 166 K/uL Mean Platelet Volume 9.7 fL Prothrombin Time 11.2 SECONDS Prothromb Time International Ratio 1.1 Sodium Level 139 mmol/L Potassium Level 3.9 mmol/L Chloride Level 105 mmol/L Carbon Dioxide Level 25 mmol/L Anion Gap 8.0 mmol/L Blood Urea Nitrogen 6 mg/dl Creatinine 0.85 mg/dl Est Creatinine Clear Calc Drug Dose 97.2 ml/min Estimated GFR () 113.5 Estimated GFR (Non- 97.9 BUN/Creatinine Ratio 7.6 Random Glucose 91 mg/dl Calcium Level 8.7 mg/dl Magnesium Level 2.3 mg/dl
--- NOTE | 2017-06-21 10:28 | Consultant Recommendations ---
[employer]isher Recommendations Date of Service Jun 21, 2017. [employer] Recommendations Pulmonary Follow Up with Dr. Aguillon Thursday, June 29, 2017 at 2:00pm
[2017-06-21] MEDS: ENOXAPARIN 80 MG/0.8 ML SYR SQ SCH (12:43)
--- NOTE | 2017-06-21 13:23 | Progress Note ---
Medicine Progress Note Date & Time of Visit: Jun 21, 2017 at 13:13. Subjective Seen resting in bed family at bedside Sitting up, comfortable States left-sided chest pain is improving Denies shortness of breath, no cough Denies dizziness nausea other symptoms No bleeding States she is ready and would like to be discharged today Objective Last 8 Hrs Date Time Temp Pulse Resp B/P (MAP) Pulse Ox O2 Delivery O2 Flow Rate FiO2 06/21/17 12:00 Room Air 06/21/17 11:45 37.5 91 19 134/87 (103) 100 Room Air 06/21/17 11:19 100 Room Air 06/21/17 08:00 Room Air 06/21/17 07:26 36.8 60 18 116/74 (88) 98 Room Air Physical Exam: General-oriented 3 not in distress speaking sentences no accessory muscle use Head- atraumatic Eyes- PERRL, EOMI, anicteric ENT- oropharynx clear Neck- supple, no JVD, no adenopathy, no thyromegalY Lungs- clear to auscultation bilaterally, no rales or wheezes Heart- regular rhythm; no murmur, normal rate Abdomen- normal bowel sounds, soft, nontender Extremities- no pretibial edema, no calf tenderness; peripheral pulses intact Neuro- alert, oriented x 3; no gross focal neurologic deficits Skin- warm & dry Laboratory Results: Last 24 Hours Test 06/20/17 15:52 06/21/17 05:53 Troponin I < 0.015 ng/ml White Blood Count 8.05 K/uL Red Blood Count 4.83 M/uL Hemoglobin 13.5 g/dL Hematocrit 40.1 % Mean Corpuscular Volume 83.0 fL Mean Corpuscular Hemoglobin 28.0 pg Mean Corpuscular Hemoglobin Concent 33.7 g/dl RDW Standard Deviation 43.0 fL RDW Coefficient of Variation 14.3 % Platelet Count 166 K/uL Mean Platelet Volume 9.7 fL Prothrombin Time 11.2 SECONDS Prothromb Time International Ratio 1.1 Sodium Level 139 mmol/L Potassium Level 3.9 mmol/L Chloride Level 105 mmol/L Carbon Dioxide Level 25 mmol/L Anion Gap 8.0 mmol/L Blood Urea Nitrogen 6 mg/dl Creatinine 0.85 mg/dl Est Creatinine Clear Calc Drug Dose 97.2 ml/min Estimated GFR () 113.5 Estimated GFR (Non- 97.9 BUN/Creatinine Ratio 7.6 Random Glucose 91 mg/dl Calcium Level 8.7 mg/dl Magnesium Level 2.3 mg/dl Assessment & Plan ACUTE PULMONARY EMBOLISM LEFT LOWER LOBE Risk factors: Use of OCP, history of factor V Leyden deficiency mother Denies recent long Travel, prolonged Hospitalization CT angiogram chest: There are extensive left lower lobe pulmonary artery filling defects, indicative of acute pulmonary embolism. There is also a filling defect at the origin of the left upper lobe pulmonary artery Echo: Normal LV chamber size and wall thickness. * Normal LV systolic function, EF 60-65%. * No segmental left ventricular wall motion abnormalities are noted. * Normal diastolic function. * No significant valvular pathology Placed on therapeutic Lovenox and Coumadin Hemodynamically stable, no hypoxia Chest pain improving Consulted pulmonary service Dr. Gandhi Recommended transition to novel oral anticoagulants Recommend at least 6 months of anticoagulation Follow-up results of hypercoagulable workup currently pending Discussed at length with patient and her parents Options for the novel oral anticoagulants discussed at length including increased risk of bleeding Patient and family has selected Xarelto or Eliquis Insurance coverage checked by registered nurse hh case manager, her insurance only covers with Xarelto Insurance authorization acquired by undersigned over the phone and patient has been approved for three-month coverage We will discharge patient on Xarelto 15 mg twice daily 3 weeks then 20 mg p.o. daily Patient will be given prescriptions for Xarelto 50 mg twice daily 3 weeks, then then She needs to have a prescription written for the subsequent 20 mg p.o. daily Risks of taking Xarelto explained to patient and her parents at length Including no antidote developed at this time for Xarelto in case of life- threatening bleeding They are agreeable and understanding Patient needs to follow-up closely with the painter tumbling barrel at [facility], as follows: Pulmonary Follow Up with Dr. Aguillon Thursday, June 29, 2017 at 2:00pm Follow-up hypercoagulable workup results as an outpatient Disposition; Discharge to home Follow up with primary care physician in 3-5 days Follow-up with a painter tumbling barrel in 1 week Current Inpatient Medications: Current Inpatient Medications Medications (Trade) Dose Ordered Sig/Rubia Route Start Time Stop Time Status Last Admin Dose Admin Ioversol (Optiray 320) 111 ml UD PRN IV 06/20/17 11:15 06/24/17 11:14 Acetaminophen (Tylenol Tab) 650 mg Q4H PRN PO 06/20/17 12:15 07/20/17 12:14 Ondansetron HCl (Zofran Inj) 4 mg Q6H PRN IV 06/20/17 12:15 07/20/17 12:14 Enoxaparin Sodium (Lovenox Inj) 70 mg Q12H SQ 06/21/17 00:00 07/21/17 00:00 06/21/17 12:43 70 MG Warfarin Sodium (Coumadin Tab) 5 mg DAILY@16 PO 06/20/17 16:00 07/20/17 15:59 06/20/17 15:29 5 MG
[2017-06-21] MEDS ORDERED: XRL20 PO (13:32)
[2017-06-21] MEDS ORDERED: XRL15 PO (13:32)
--- NOTE | 2017-06-21 13:42 | Discharge Instructions ---
Discharge Instructions Date of Service Jun 21, 2017. Admission Reason for Admission: Pulmonary Embolism Discharge Discharge Diagnosis / Problem: ACUTE PULMONARY EMBOLISM Discharge Goals Goal(s): Diagnostic testing, Therapeutic intervention Activity Recommendations Activity Limitations: as noted below (NO HEAVY EXERTION UNTIL RE-EVALUTED BY PRIMARY CARE PHYSICIAN) Lifting Limitations: until after follow-up appointment Exercise/Sports Limitations: until after follow-up appointment Driving or Machine Use: UNTIL RE-EVALAUTED BY PRIMARY CARE PHYSICIAN . Instructions / Follow-Up Instructions / Follow-Up PLEASE REFER TO YOUR NEW MEDICATION LIST AND FOLLOW INSTRUCTIONS CAREFULLY. YOUR NEW MEDICATION IS A XARELTO, A BLOOD THINNER: always take with food take Xarelto 15mg po twice a day until July 12, 2017, then stop; starting July 13, 2017, transition to Xarelto 20mg po daily with food CALL YOUR PRIMARY CARE PHYSICIAN OR RETURN TO ER IMMEDIATELY IF WITH WORSENING OF SYMPTOMS, INCREASING CHEST PAIN, SHORTNESS OF BREATH, DIZZINESS, SIGNS OF BLEEDING. IF YOU EXPERIENCE ANY HEAD TRAUMA, GO THE ER IMMEDIATELY FOR URGENT EVALUATION. PLEASE FOLLOW UP WITH PRIMARY CARE PHYSICIAN: DR. FALL ON THRUSJUNE 23, 2017 AT 11:05. FOLLOW UP WITH GLASS ETCHER HELPER AT [facility]: Dr. Aguillon Thursday, June 29, 2017 at 2:00pm [address] [facility] [address] TEL. No. Current Hospital Diet Patient's current hospital diet: Regular Diet Discharge Diet Recommended Diet: Regular Diet Procedures Procedures Performed: CT SCAN OF THE CHEST Pending Studies Studies pending at discharge: yes List of pending studies: FOLLOW UP RESULTS OF HYPERCOAGULABLE WORK UP Medical Emergencies . Who to Call and When: Medical Emergencies: If at any time you feel your situation is an emergency, please call 911 immediately. . Non-Emergent Contact Non-Emergency issues call your: Primary Care Provider, Injection Machine Operator Call Non-Emergent contact if: you have a fever, your pain is not controlled, you have any medication questions . . "Provider Documentation" section prepared by Bakari Lafleur. . Tape Edge Machine Operator Recommendations Tape Edge Machine Operator Recommendations: Pulmonary Follow Up with Dr. Aguillon Thursday, June 29, 2017 at 2:00pm
--- NOTE | 2017-06-21 13:51 | Discharge Summary ---
Discharge Summary Date of Service Jun 21, 2017. Discharge Summary Admission Date: Jun 20, 2017 at 12:16 Discharge Date: Jun 21, 2017 Discharge Disposition: Home Principal Diagnosis: ACUTE PULMONARY EMBOLISM LEFT LOWER LOBE Secondary Diagnoses/Problems: please refer to hospital course below. Procedures: CT ANGIOGRAM OF THE CHEST CLINICAL HISTORY: Atypical chest pain and difficulty breathing COMPARISON STUDY: Chest x-ray dated 06/20/2017 TECHNIQUE: Following the IV administration of 79 mL of Optiray-320, CT angiogram of the thorax was performed from the thoracic inlet to the lung bases utilizing the pulmonary embolus protocol. Images are reviewed in the axial, sagittal, and coronal planes. IV contrast was administered without complication. MIP imaging was performed. A dose lowering technique was utilized adhering to the principles of ALARA. CT DOSE: 219.96 mGy.cm FINDINGS: No pathologically enlarged axillary mediastinal or hilar lymph nodes were visualized. There was no evidence of thoracic aortic dilatation. There are extensive left lower lobe pulmonary artery filling defects, indicative of acute pulmonary embolism. There is also a filling defect at the origin of the left upper lobe pulmonary artery No pleural effusions are visualized. There was no evidence of focal pulmonary consolidation. IMPRESSION: Acute pulmonary embolism. Electronically signed by: Steve Osman M.D. 06/20/2017 11:20 AM Consultations: Pulmonary Dr. Gandhi Pending Studies/Follow-Up: Please follow up results of hypercoagulable work up done at [facility] Dated June 20, 2017. Medication Reconciliation New Medications: Rivaroxaban (Xarelto) 15 Mg Tab 1 TAB PO BID for 21 Days, #42 TABS 0 Refills always take with food; to be taken until July 12, 2017 Rivaroxaban (Xarelto) 20 Mg Tab 1 TAB PO DAILY for 30 Days, #30 TABS 1 Refill TO BE STARTED ON JULY 13, 2017; TAKE WITH FOOD Discontinued Medications: Ethinyl Estradiol/Norethindr () 1 Tab Tab 1 TAB PO DAILY for 28 Days, #28 TAB 11 Refills Admission Information HPI (per Admitting provider): Patient is a 22 yr female with no significant PMH presents with history of chest tightness and throat pain which patient noticed after waking up from sleep yesterday. She grades the pain to be epigastric in location, dull pain, 2/ 10 intensity, non radiating, no aggravating/relieving factors. Reports associated dyspnea on exertion but denies any shortness of breath at rest. Patient is on OCPs for contraception and family history of Factor V Leiden mutation. Denies any history of palpitations, orthopnea, PND, dizziness, pedal edema, diaphoresis, calf pain, cough, hemoptysis, fever, chills, headache, weakness, nausea, vomiting, diarrhea, dysuria. CT scan showed findings suggestive of acute Pulmonary Embolism. Physical Exam (per Admitting): General Appearance: WD/WN, no apparent distress Head: normocephalic, atraumatic Eyes: normal inspection, PERRL, EOMI, sclerae normal ENT: normal ENT inspection, hearing grossly normal Neck: supple, trachea midline Respiratory/Chest: chest non-tender, lungs clear, normal breath sounds, no respiratory distress, no accessory muscle use Cardiovascular: regular rate, rhythm, no edema, no murmur, + tachycardia Abdomen/GI: normal bowel sounds, non tender, soft Back: normal inspection Extremities/Musculoskelatal: normal inspection, no pedal edema Neurologic/Psych: life cycle assessment analyst II-XII nml as tested, no motor/sensory deficits, alert , normal mood/affect, oriented x 3 Skin: normal color, warm/dry Hospital Course ACUTE PULMONARY EMBOLISM LEFT LOWER LOBE Risk factors: Use of OCP, history of factor V Leyden deficiency mother Denies recent long Travel, prolonged Hospitalization CT angiogram chest: There are extensive left lower lobe pulmonary artery filling defects, indicative of acute pulmonary embolism. There is also a filling defect at the origin of the left upper lobe pulmonary artery Echo: Normal LV chamber size and wall thickness. * Normal LV systolic function, EF 60-65%. * No segmental left ventricular wall motion abnormalities are noted. * Normal diastolic function. * No significant valvular pathology Placed on therapeutic Lovenox and Coumadin Remained Hemodynamically stable, no hypoxia Chest pain improving Consulted pulmonary service Dr. Gandhi Recommended transition to novel oral anticoagulants Recommend at least 6 months of anticoagulation Follow-up results of hypercoagulable workup which is currently pending Discussed at length with patient and her parents Options for the novel oral anticoagulants discussed at length including increased risk of bleeding Patient and family has selected Xarelto or Eliquis Insurance coverage checked by director of casework services, her insurance only covers with Xarelto Insurance authorization acquired by undersigned over the phone and patient has been approved for three-month coverage We will discharge patient on Xarelto 15 mg twice daily 3 weeks then 20 mg p.o. daily Patient will be given prescriptions for Xarelto 50 mg twice daily 3 weeks, at this time, but needs to fill prescription for Xarelto 20mg po daily after 3 weeks Risks of taking Xarelto explained to patient and her parents at length Including no antidote developed at this time for Xarelto in case of life- threatening bleeding They are agreeable and understanding Patient needs to follow-up closely with the folder machine operator at [facility], as follows: Pulmonary Follow Up with Dr. Aguillon Thursday, June 29, 2017 at 2:00pm Follow-up hypercoagulable workup results as an outpatient Disposition; Discharge to home Follow up with primary care physician in 3-5 days Follow-up with a folder machine operator in 1 week Total time spent on discharge = 60 minutes This includes examination of the patient, discharge planning, medication reconciliation, and communication with other providers. Discharge Instructions Discharge Instructions Date of Service Jun 21, 2017. Admission Reason for Admission: Pulmonary Embolism Discharge Discharge Diagnosis / Problem: ACUTE PULMONARY EMBOLISM Discharge Goals Goal(s): Diagnostic testing, Therapeutic intervention Activity Recommendations Activity Limitations: as noted below (NO HEAVY EXERTION UNTIL RE-EVALUTED BY PRIMARY CARE PHYSICIAN) Lifting Limitations: until after follow-up appointment Exercise/Sports Limitations: until after follow-up appointment Driving or Machine Use: UNTIL RE-EVALAUTED BY PRIMARY CARE PHYSICIAN . Instructions / Follow-Up Instructions / Follow-Up PLEASE REFER TO YOUR NEW MEDICATION LIST AND FOLLOW INSTRUCTIONS CAREFULLY. YOUR NEW MEDICATION IS A XARELTO, A BLOOD THINNER: always take with food take Xarelto 15mg po twice a day until July 12, 2017, then stop; starting July 13, 2017, transition to Xarelto 20mg po daily with food CALL YOUR PRIMARY CARE PHYSICIAN OR RETURN TO ER IMMEDIATELY IF WITH WORSENING OF SYMPTOMS, INCREASING CHEST PAIN, SHORTNESS OF BREATH, DIZZINESS, SIGNS OF BLEEDING. IF YOU EXPERIENCE ANY HEAD TRAUMA, GO THE ER IMMEDIATELY FOR URGENT EVALUATION. PLEASE FOLLOW UP WITH PRIMARY CARE PHYSICIAN: DR. FALL ON THRUSJUNE 23, 2017 AT 11:05. FOLLOW UP WITH QA SOFTWARE TESTER AT [facility]: Dr. Aguillon Thursday, June 29, 2017 at 2:00pm [address] [place] [address] TEL. No. Current Hospital Diet Patient's current hospital diet: Regular Diet Discharge Diet Recommended Diet: Regular Diet Procedures Procedures Performed: CT SCAN OF THE CHEST Pending Studies Studies pending at discharge: yes List of pending studies: FOLLOW UP RESULTS OF HYPERCOAGULABLE WORK UP Medical Emergencies . Who to Call and When: Medical Emergencies: If at any time you feel your situation is an emergency, please call 911 immediately. . Non-Emergent Contact Non-Emergency issues call your: Primary Care Provider, Batch And Furnace Manager Call Non-Emergent contact if: you have a fever, your pain is not controlled, you have any medication questions . . "Provider Documentation" section prepared by Bakari Lafleur. . 3Rd Grade Teacher Recommendations 3Rd Grade Teacher Recommendations: Pulmonary Follow Up with Dr. Aguillon Thursday, June 29, 2017 at 2:00pm
== END 2017-06-21 15:23 | disposition home or self-care (01) | DRG 176 ==
LOC: C.EDB 09:52 → C.2T 12:16 → ENRESERV 12:28
PROVIDERS: ADMIT Internal Medicine; ATTEND Internal Medicine
DX: I26.99 Other pulmonary embolism without acute cor pulmonale (principal); Z79.3 Long term (current) use of hormonal contraceptives; Z83.2 Family history of diseases of the blood and blood-forming organs and certain disorders involving the immune mechanism